=== PATIENT | female | born 1975 | race Hispanic/Latino ===

== ENCOUNTER 2017-08-04 22:53 | Inpatient (IN) | payer MEDICAID, OTHER ==
[~2017-08-04] VITALS: Ht 149.9 cm; Wt 69.2 kg
[~2017-08-04 22:53] MED LIST: LEVO500T2 PO; METF850T2 PO
[2017-08-04] MEDS ORDERED: ONDANSETRON HCL 4 MG/2 ML VIAL ONE (23:26)
[2017-08-04 23:47] LABS: BASOPHILS % (AUTO) 0.7 % (0.0-5.0); EOSINOPHILS % (AUTO) 3.7 % (0.0-8.0); HEMATOCRIT 34.9 % (36-48); MEAN CORPUSCULAR HEMOGLOBIN 28.8 pg (27.0-33.0); MEAN CORPUSCULAR HGB CONC 34.4 g/dL (32.0-36.0); MEAN CORPUSCULAR VOLUME 83.6 fL (79-99); MONOCYTES % (AUTO) 7.8 % (3.0-13.0); NEUTROPHILS % (AUTO) 51.8 % (40.0-77.0); NUCLEATED RED BLOOD CELLS 0.1 % (0.0-0.19); PLATELET COUNT (AUTO) 156 K/uL (130-400); RED BLOOD CELL COUNT(AUTO) 4.17 MIL/uL (4.00-5.50); RED CELL DISTRIBUTION WIDTH 14.8 % (11.0-15.5); WHITE BLOOD COUNT (AUTO) 5.2 K/uL (4.8-10.8)
[2017-08-04 23:56] LABS: CREATININE 3.6 mg/dL (0.5-1.5); POTASSIUM 4.8 mmol/L (3.5-5.1)
[2017-08-05 00:01] LABS: ALBUMIN 2.7 g/dL (3.5-5.0); BILIRUBIN,TOTAL 0.2 mg/dL (0.2-1.0); TOTAL PROTEIN, SERUM 6.7 g/dL (6.0-8.3)
[2017-08-05 00:40] LABS: BILIRUBIN,URINE Negative (NEGATIVE); COLOR,URINE Yellow (YELLOW); GLUCOSE, URINE (UA) Negative (NEGATIVE); KETONES,URINE Negative (NEGATIVE); LEUKOCYTE ESTERASE ,URINE Negative (NEGATIVE); NITRATE,URINE Negative (NEGATIVE); OCCULT BLOOD,URINE Trace (NEGATIVE); PROTEIN,URINE 300 (NEGATIVE); UROBILINOGEN,URINE 0.2 mg/dL (0.2-1.0)
[2017-08-05 00:42] LABS: APPEARANCE,URINE SLIGHTLY CLOUDY (CLEAR)
[2017-08-05 00:54] LABS: AMORPHOUS SEDIMENT,UR Few /LPF (None Seen); BACTERIA,URINE None Seen /HPF (None Seen); RBC,URINE 0-1 /HPF (0-1); SQUAMOUS EPITHELIAL CELL,UR Few /LPF (0-2); WBC,URINE 0-1 /HPF (0-1)
[2017-08-05] MEDS ORDERED: ACETAMINOPHEN 325 MG TAB PO PRN ×2 (03:15)
[2017-08-05] MEDS ORDERED: IPRATROPIUM/ALBUTEROL SULFATE 3 ML SOLUTION IH PRN (03:30)
[2017-08-05] MEDS ORDERED: IPRATROPIUM/ALBUTEROL SULFATE 3 ML SOLUTION IH ONE (06:40)
[2017-08-05] MEDS: FAMOTIDINE/PF 20 MG/2 ML VIAL IV SCH ×2 (09:00→21:48)
[2017-08-05] MEDS: OSELTAMIVIR PHOSPHATE 75 MG CAP PO SCH ×2 (09:00→23:34)
[2017-08-05] MEDS ORDERED: OSELTAMIVIR PHOSPHATE 75 MG CAP ONE (09:41)
[2017-08-05] MEDS ORDERED: FAMOTIDINE/PF 20 MG/2 ML VIAL IV ONE (09:42)
[2017-08-05] MEDS ORDERED: DEXTROSE 50%-WATER 50 ML DISP.SYRIN IV ONE ×2 (12:12→17:50)
[2017-08-05] MEDS ORDERED: TRAMADOL HCL 50 MG TABLET ONE (12:31)
[2017-08-05 16:00] VITALS: BP 105/70
[2017-08-05] MEDS ORDERED: ONDANSETRON HCL 4 MG/2 ML VIAL ONE (16:20)
[2017-08-05] MEDS ORDERED: DEXTROSE 50%-WATER 50 ML DISP.SYRIN IV PRN (18:30)
[2017-08-05] MEDS ORDERED: GLUCAGON 1MG KIT 1 MG ML IM PRN (18:30)
[2017-08-05] MEDS: SODIUM CHLORIDE 0.9% 1000ML 1,000 ML IV SCH (19:59)
[2017-08-05 20:00] VITALS: BP 105/70
[2017-08-05] MEDS: FLU VACC QS2017-18 36MOS UP/PF 60 MCG/0.5 ML ML IM SCH (20:45)
[2017-08-05] MEDS: PNEUMOCOCCAL VACCINE POLYVALENT 0.5 ML/VIAL [PPV] IM SCH (20:45)
[2017-08-05] MEDS: ONDANSETRON HCL 4 MG/2 ML VIAL IV PRN (22:22)
[2017-08-06] VITALS (67 sets, daily range): BP systolic 51–176; BP diastolic 29–99
[2017-08-06] MEDS ORDERED: SODIUM CHLORIDE 0.9% 1000ML 1,000 ML IV SCH ×2 (00:45→00:50)
[2017-08-06 01:39] LABS: BASOPHILS % (AUTO) 0.7 % (0.0-5.0); EOSINOPHILS % (AUTO) 2.3 % (0.0-8.0); HEMATOCRIT 25.9 % (36-48); LYMPHOCYTES % (AUTO) 52.2 % (21.0-51.0); MEAN CORPUSCULAR HEMOGLOBIN 29.1 pg (27.0-33.0); MEAN CORPUSCULAR HGB CONC 34.3 g/dL (32.0-36.0); MONOCYTES % (AUTO) 7.7 % (3.0-13.0); NEUTROPHILS % (AUTO) 37.1 % (40.0-77.0); NUCLEATED RED BLOOD CELLS 0.1 % (0.0-0.19); PLATELET COUNT (AUTO) 93 K/uL (130-400); RED BLOOD CELL COUNT(AUTO) 3.05 MIL/uL (4.00-5.50); RED CELL DISTRIBUTION WIDTH 14.7 % (11.0-15.5); WHITE BLOOD COUNT (AUTO) 4.2 K/uL (4.8-10.8)
[2017-08-06 01:52] LABS: ABG BASE EXCESS -13.3 mmol/L (-2.0-3.0); ABG HCO3 12.7 mmol/L (21.0-28.0); ABG OXYGEN SATURATION 99.1 % (95.0-99.0); ABG PCO2 30 mmHg (32-45)
[2017-08-06 02:12] LABS: ALBUMIN 1.9 g/dL (3.5-5.0); BILIRUBIN,TOTAL 0.2 mg/dL (0.2-1.0); CREATINE KINASE MB 0.8 ng/mL (0.5-3.6); MAGNESIUM 1.6 mg/dL (1.80-2.40); PHOSPHORUS 5.6 mg/dL (2.5-4.9); POTASSIUM 4.9 mmol/L (3.5-5.1); TOTAL PROTEIN, SERUM 4.8 g/dL (6.0-8.3); TROPONIN I 0.08 ng/mL (0.00-0.06)
[2017-08-06] MEDS: DEXTROSE 5 % AND 0.9 % NACL 1,000 ML IV SCH ×3 (02:23→21:19)
[2017-08-06] MEDS ORDERED: NOREPINEPHRINE 4MG/NS 250ML 4 MG/250 ML IV.SOLN IV SCH (02:45)
[2017-08-06] MEDS ORDERED: NOREPINEPHRINE 4MG/NS 250ML 250 ML IV SCH (02:45)
[2017-08-06] MEDS ORDERED: SODIUM CHLORIDE 0.9% 250 ML IV ONE (02:50)
[2017-08-06] MEDS ORDERED: NOREPINEPHRINE BITARTRATE 1 MG/1 ML ML IV ONE (02:50)
[2017-08-06] MEDS: SODIUM CHLORIDE 0.9% 1000ML 1,000 ML IV SCH ×9 (02:57→08:54)
[2017-08-06 03:00] LABS: BAND NEUTROPHILS % (MANUAL) 16 % (0-2); BASOPHILS % (MANUAL) 1 % (0-2); EOSINOPHILS % (MANUAL) 2 % (1-6); LYMPHOCYTES % (MANUAL) 46 % (22-44); MONOCYTES % (MANUAL) 1 % (2-9); REACTIVE LYMPHOCYTES 1 % (0-0); SEGMENTED NEUTROPHILS % 33 % (40-70)
[2017-08-06 03:01] LABS: MAN.DIFF COMMENT-IMPRESSION MANUAL DIFFERENTIAL; PLATELET MORPHOLOGY COMMENT DECREASED
[2017-08-06] MEDS ORDERED: MAGNESIUM 2GM PREMIX 50ML 50 ML IV ONE (03:25)
[2017-08-06] MEDS: ONDANSETRON HCL 4 MG/2 ML VIAL IV PRN ×2 (05:05→20:15)
[2017-08-06 06:36] LABS: HEMATOCRIT 30.2 % (36-48)
[2017-08-06] MEDS: OSELTAMIVIR PHOSPHATE 75 MG CAP PO SCH ×2 (08:54→20:16)
[2017-08-06] MEDS: FAMOTIDINE/PF 20 MG/2 ML VIAL IV SCH ×2 (08:54→20:15)
[2017-08-06 11:27] LABS: ACETONE,BLOOD NEGATIVE (NEGATIVE)
[2017-08-06] MEDS: INSULIN HUMULIN R 100 UNIT/ML 3ML SQ SCH ×3 (11:30→20:58)
[2017-08-06] MEDS: TRAMADOL HCL 50 MG TABLET PO PRN (11:59)
[2017-08-06 12:34] LABS: ABG BASE EXCESS -15.5 mmol/L (-2.0-3.0); ABG HCO3 12.6 mmol/L (21.0-28.0); ABG OXYGEN SATURATION 27.5 % (95.0-99.0); ABG PCO2 38 mmHg (32-45)
[2017-08-06 12:45] LABS: ABG BASE EXCESS -16.5 mmol/L (-2.0-3.0); ABG HCO3 10.2 mmol/L (21.0-28.0); ABG OXYGEN SATURATION 97.6 % (95.0-99.0); ABG PCO2 27 mmHg (32-45)
[2017-08-06] MEDS ORDERED: MEROPENEM 1GM IVPB PREMIXED 1 GM IV SCH (13:00)
[2017-08-06 13:15] LABS: INR 1.01 (0.85-1.15); PROTHROMBIN TIME 10.6 SEC (9.6-11.6)
[2017-08-06] MEDS ORDERED: ZOSYN 3.375GM+NS 50ML 50 ML IV SCH (13:15)
[2017-08-06] MEDS ORDERED: SODIUM BICARB 50MEQ 50ML VIAL IV SCH (13:23)
[2017-08-06] MEDS: IPRATROPIUM/ALBUTEROL SULFATE 3 ML SOLUTION IH SCH ×4 (13:27→22:21)
[2017-08-06] MEDS: MIDODRINE HCL 5 MG TABLET PO SCH ×2 (13:32→20:16)
[2017-08-06] MEDS: SODIUM BICARB 8.4% 50ML SYRING 150 MEQ in DEXTROSE 5%-WATER 1,000 ML IV SCH (13:52)
[2017-08-06] MEDS: MEROPENEM 1 GM VIAL IVP SCH ×2 (13:52→21:23)
[2017-08-06 15:02] LABS: AMYLASE 33 U/L (25-115); LIPASE 176 U/L (114-286)
[2017-08-06] MEDS ORDERED: ENOXAPARIN SODIUM 60 MG/0.6 ML SQ SCH (16:00)
[2017-08-06] MEDS: FLU VACC QS2017-18 36MOS UP/PF 60 MCG/0.5 ML ML IM SCH (20:04)
[2017-08-06] MEDS: PNEUMOCOCCAL VACCINE POLYVALENT 0.5 ML/VIAL [PPV] IM SCH (20:04)
[2017-08-06] MEDS: ENOXAPARIN SODIUM 60 MG/0.6 ML SQ SCH (20:17)
[2017-08-07] VITALS (37 sets, daily range): BP systolic 84–124; BP diastolic 42–73
[2017-08-07] MEDS: IPRATROPIUM/ALBUTEROL SULFATE 3 ML SOLUTION IH SCH ×6 (02:24→22:17)
[2017-08-07 04:13] LABS: HEMATOCRIT 28.5 % (36-48); MEAN CORPUSCULAR HEMOGLOBIN 28.6 pg (27.0-33.0); MEAN CORPUSCULAR HGB CONC 33.8 g/dL (32.0-36.0); MEAN CORPUSCULAR VOLUME 84.5 fL (79-99); NUCLEATED RED BLOOD CELLS 0.1 % (0.0-0.19); PLATELET COUNT (AUTO) 141 K/uL (130-400); RED BLOOD CELL COUNT(AUTO) 3.37 MIL/uL (4.00-5.50); RED CELL DISTRIBUTION WIDTH 15.2 % (11.0-15.5); WHITE BLOOD COUNT (AUTO) 5.7 K/uL (4.8-10.8)
[2017-08-07 04:18] LABS: CREATININE 2.2 mg/dL (0.5-1.5); MAGNESIUM 1.8 mg/dL (1.80-2.40); POTASSIUM 3.8 mmol/L (3.5-5.1)
[2017-08-07 05:32] LABS: BAND NEUTROPHILS % (MANUAL) 26 % (0-2); BASOPHILS % (MANUAL) 1 % (0-2); LYMPHOCYTES % (MANUAL) 34 % (22-44); MONOCYTES % (MANUAL) 4 % (2-9); REACTIVE LYMPHOCYTES 2 % (0-0); SEGMENTED NEUTROPHILS % 33 % (40-70)
[2017-08-07 05:33] LABS: MAN.DIFF COMMENT-IMPRESSION MANUAL DIFFERENTIAL; PLATELET MORPHOLOGY COMMENT ADEQUATE
[2017-08-07] MEDS: MEROPENEM 1 GM VIAL IVP SCH ×3 (05:39→21:48)
[2017-08-07 05:54] LABS: ABG BASE EXCESS -8.3 mmol/L (-2.0-3.0); ABG HCO3 15.7 mmol/L (21.0-28.0); ABG PCO2 29 mmHg (32-45)
[2017-08-07] MEDS: INSULIN HUMULIN R 100 UNIT/ML 3ML SQ SCH ×4 (06:16→20:10)
[2017-08-07] MEDS: ONDANSETRON HCL 4 MG/2 ML VIAL IV PRN ×2 (06:39→20:00)
[2017-08-07] MEDS ORDERED: GUAIFENESIN SUGAR-FREE 100 MG/5 ML UDCUP PO PRN (06:45)
[2017-08-07] MEDS ORDERED: BENZONATATE 100 MG CAPSULE PO PRN (06:45)
[2017-08-07] MEDS: OSELTAMIVIR PHOSPHATE 75 MG CAP PO SCH ×2 (08:23→20:00)
[2017-08-07] MEDS: MIDODRINE HCL 5 MG TABLET PO SCH ×3 (08:23→20:00)
[2017-08-07] MEDS: FAMOTIDINE/PF 20 MG/2 ML VIAL IV SCH ×2 (08:23→20:00)
[2017-08-07] MEDS: ENOXAPARIN SODIUM 60 MG/0.6 ML SQ SCH (08:24)
[2017-08-07] MEDS: SODIUM CHLORIDE 0.9% 1000ML 1,000 ML IV SCH ×2 (08:26→20:00)
[2017-08-07] MEDS: MAGNESIUM 2GM PREMIX 50ML 50 ML IV SCH (08:28)
[2017-08-07] MEDS ORDERED: ENOXAPARIN SODIUM 30 MG/0.3 ML SQ SCH (09:00)
[2017-08-07] MEDS ORDERED: ENOXAPARIN SODIUM 120 MG/0.8ML SQ SCH (09:00)
[2017-08-07] MEDS: SODIUM BICARB 8.4% 50ML SYRING 150 MEQ in DEXTROSE 5%-WATER 1,000 ML IV SCH (11:56)
[2017-08-07] MEDS ORDERED: DIPHENOXYLATE HCL/ATROPINE 2.5/0.025 MG TAB PO PRN (19:15)
[2017-08-07] MEDS: FLU VACC QS2017-18 36MOS UP/PF 60 MCG/0.5 ML ML IM SCH (19:30)
[2017-08-07] MEDS: PNEUMOCOCCAL VACCINE POLYVALENT 0.5 ML/VIAL [PPV] IM SCH (19:30)
[2017-08-08] VITALS (40 sets, daily range): BP systolic 55–147; BP diastolic 30–95
[2017-08-08] MEDS: IPRATROPIUM/ALBUTEROL SULFATE 3 ML SOLUTION IH SCH ×6 (02:10→22:00)
[2017-08-08 03:35] LABS: BASOPHILS % (AUTO) 0.4 % (0.0-5.0); EOSINOPHILS % (AUTO) 1.5 % (0.0-8.0); HEMATOCRIT 24.1 % (36-48); LYMPHOCYTES % (AUTO) 46.4 % (21.0-51.0); MEAN CORPUSCULAR HEMOGLOBIN 29.7 pg (27.0-33.0); MEAN CORPUSCULAR HGB CONC 35.8 g/dL (32.0-36.0); MONOCYTES % (AUTO) 10.8 % (3.0-13.0); NEUTROPHILS % (AUTO) 40.9 % (40.0-77.0); NUCLEATED RED BLOOD CELLS 0.1 % (0.0-0.19); PLATELET COUNT (AUTO) 122 K/uL (130-400); RED BLOOD CELL COUNT(AUTO) 2.91 MIL/uL (4.00-5.50); RED CELL DISTRIBUTION WIDTH 15.2 % (11.0-15.5); WHITE BLOOD COUNT (AUTO) 5.4 K/uL (4.8-10.8)
[2017-08-08 03:44] LABS: CREATININE 1.9 mg/dL (0.5-1.5); POTASSIUM 3.2 mmol/L (3.5-5.1)
[2017-08-08] MEDS: SODIUM CHLORIDE 0.9% 1000ML 1,000 ML IV SCH ×2 (05:25→15:59)
[2017-08-08] MEDS: MEROPENEM 1 GM VIAL IVP SCH ×3 (05:25→21:08)
[2017-08-08] MEDS: INSULIN HUMULIN R 100 UNIT/ML 3ML SQ SCH ×3 (05:26→20:15)
[2017-08-08] MEDS: ONDANSETRON HCL 4 MG/2 ML VIAL IV PRN (08:22)
[2017-08-08] MEDS: OSELTAMIVIR PHOSPHATE 75 MG CAP PO SCH ×3 (09:37→20:19)
[2017-08-08] MEDS: FAMOTIDINE/PF 20 MG/2 ML VIAL IV SCH ×2 (09:37→20:18)
[2017-08-08] MEDS: MIDODRINE HCL 5 MG TABLET PO SCH ×4 (09:37→20:19)
[2017-08-08] MEDS: ENOXAPARIN SODIUM 30 MG/0.3 ML SQ SCH ×2 (09:38→12:00)
[2017-08-08] MEDS ORDERED: POTASSIUM CHLORIDE 20 MEQ/100 ML BAG IV SCH (10:30)
[2017-08-08] MEDS ORDERED: CHLORPROMAZINE HCL 25 MG/ML 1ML AMP IM PRN (11:45)
[2017-08-08] MEDS ORDERED: CHLORPROMAZINE HCL 25 MG/ML 1ML AMP IM SCH (11:45)
[2017-08-08] MEDS: SUCRALFATE 1 GM/10 ML PO SCH ×3 (12:12→21:09)
[2017-08-08] MEDS: POTASSIUM CHLORIDE 20MEQ/100ML 100 ML IV SCH ×2 (12:13→16:02)
[2017-08-08] MEDS: M.V.I. IV [ADULT] 10 ML in CLINIMIX E 5%-15% 2,000 ML IV SCH (12:17)
[2017-08-08 15:26] LABS: BASOPHILS % (AUTO) 0.6 % (0.0-5.0); EOSINOPHILS % (AUTO) 2.2 % (0.0-8.0); HEMATOCRIT 26.2 % (36-48); LYMPHOCYTES % (AUTO) 46.7 % (21.0-51.0); MEAN CORPUSCULAR HEMOGLOBIN 28.9 pg (27.0-33.0); MEAN CORPUSCULAR HGB CONC 34.3 g/dL (32.0-36.0); MEAN CORPUSCULAR VOLUME 84.4 fL (79-99); MONOCYTES % (AUTO) 8.4 % (3.0-13.0); NEUTROPHILS % (AUTO) 42.1 % (40.0-77.0); PLATELET COUNT (AUTO) 154 K/uL (130-400); RED CELL DISTRIBUTION WIDTH 15.4 % (11.0-15.5); WHITE BLOOD COUNT (AUTO) 5.6 K/uL (4.8-10.8)
[2017-08-08 15:46] LABS: CREATINE KINASE MB 3.3 ng/mL (0.5-3.6)
[2017-08-08 15:50] LABS: TROPONIN I 1.08 ng/mL (0.00-0.06)
[2017-08-08] MEDS: HYDROCORTISONE SOD SUCCINATE 100 MG/2 ML VIAL IV SCH ×3 (16:02→20:18)
[2017-08-08] MEDS: FLU VACC QS2017-18 36MOS UP/PF 60 MCG/0.5 ML ML IM SCH (19:33)
[2017-08-08] MEDS ORDERED: ENOXAPARIN SODIUM 80 MG/0.8 ML SQ SCH (20:00)
[2017-08-08 22:40] LABS: CREATINE KINASE MB 2.9 ng/mL (0.5-3.6)
[2017-08-08 22:42] LABS: TROPONIN I 0.85 ng/mL (0.00-0.06)
[2017-08-09] VITALS (29 sets, daily range): BP systolic 109–170; BP diastolic 63–103
[2017-08-09] MEDS: INSULIN HUMULIN R 100 UNIT/ML 3ML SQ SCH ×4 (00:21→17:26)
[2017-08-09] MEDS: IPRATROPIUM/ALBUTEROL SULFATE 3 ML SOLUTION IH SCH ×6 (02:00→23:37)
[2017-08-09 04:17] LABS: ALBUMIN 1.8 g/dL (3.5-5.0); BILIRUBIN,TOTAL 0.3 mg/dL (0.2-1.0); CREATINE KINASE MB 1.9 ng/mL (0.5-3.6); PHOSPHORUS 1.7 mg/dL (2.5-4.9); POTASSIUM 4.7 mmol/L (3.5-5.1); TOTAL PROTEIN, SERUM 5.3 g/dL (6.0-8.3)
[2017-08-09 04:22] LABS: TROPONIN I 0.7 ng/mL (0.00-0.06)
[2017-08-09] MEDS: MEROPENEM 1 GM VIAL IVP SCH ×3 (05:16→21:56)
[2017-08-09] MEDS: SUCRALFATE 1 GM/10 ML PO SCH ×3 (05:16→16:32)
[2017-08-09] MEDS: TRAMADOL HCL 50 MG TABLET PO PRN (06:11)
[2017-08-09] MEDS: HYDROCORTISONE SOD SUCCINATE 100 MG/2 ML VIAL IV SCH ×4 (09:08→21:54)
[2017-08-09] MEDS: MIDODRINE HCL 5 MG TABLET PO SCH ×3 (09:09→21:54)
[2017-08-09] MEDS: ENOXAPARIN SODIUM 100 MG/1 ML SQ SCH (09:09)
[2017-08-09] MEDS: OSELTAMIVIR PHOSPHATE 75 MG CAP PO SCH ×2 (09:09→21:54)
[2017-08-09] MEDS: FAMOTIDINE/PF 20 MG/2 ML VIAL IV SCH ×2 (09:09→21:54)
[2017-08-09] MEDS: ONDANSETRON HCL 4 MG/2 ML VIAL IV PRN (10:13)
[2017-08-09] MEDS: SODIUM CHLORIDE 0.9% 1000ML 1,000 ML IV SCH ×2 (16:00→16:32)
[2017-08-09 19:04] LABS: HEMOGLOBIN A1C 8.1 % (4.0-6.0)
[2017-08-09] MEDS: FLU VACC QS2017-18 36MOS UP/PF 60 MCG/0.5 ML ML IM SCH (20:32)
[2017-08-10] VITALS (21 sets, daily range): BP systolic 112–155; BP diastolic 68–93
[2017-08-10] MEDS: SUCRALFATE 1 GM/10 ML PO SCH ×4 (00:02→18:04)
[2017-08-10] MEDS: INSULIN HUMULIN R 100 UNIT/ML 3ML SQ SCH ×5 (00:03→21:00)
[2017-08-10] MEDS: ONDANSETRON HCL 4 MG/2 ML VIAL IV PRN ×2 (03:46→13:22)
[2017-08-10 04:32] LABS: ALBUMIN 1.8 g/dL (3.5-5.0); BILIRUBIN,TOTAL 0.3 mg/dL (0.2-1.0); CREATININE 1.7 mg/dL (0.5-1.5); PHOSPHORUS 1.5 mg/dL (2.5-4.9); POTASSIUM 4.2 mmol/L (3.5-5.1); TOTAL PROTEIN, SERUM 5.3 g/dL (6.0-8.3)
[2017-08-10] MEDS: MEROPENEM 1 GM VIAL IVP SCH ×3 (05:33→22:33)
[2017-08-10] MEDS: SODIUM CHLORIDE 0.9% 1000ML 1,000 ML IV SCH ×3 (06:00→18:04)
[2017-08-10] MEDS: IPRATROPIUM/ALBUTEROL SULFATE 3 ML SOLUTION IH SCH ×4 (07:10→23:16)
[2017-08-10] MEDS: M.V.I. IV [ADULT] 10 ML in CLINIMIX E 5%-15% 2,000 ML IV SCH (09:00)
[2017-08-10] MEDS: HYDROCORTISONE SOD SUCCINATE 100 MG/2 ML VIAL IV SCH ×4 (09:33→20:56)
[2017-08-10] MEDS: FAMOTIDINE/PF 20 MG/2 ML VIAL IV SCH ×2 (09:33→20:56)
[2017-08-10] MEDS: MIDODRINE HCL 5 MG TABLET PO SCH ×3 (09:33→20:56)
[2017-08-10] MEDS: ENOXAPARIN SODIUM 100 MG/1 ML SQ SCH (09:33)
[2017-08-10] MEDS ORDERED: METOCLOPRAMIDE 10 MG/2 ML VIAL IVP SCH (14:00)
[2017-08-10] MEDS: METOCLOPRAMIDE 5 MG TABLET PO SCH ×2 (15:39→18:04)
[2017-08-10] MEDS ORDERED: POTASSIUM PHOS 15 mMOL+NS250ML 250 ML IV SCH (15:45)
[2017-08-10] MEDS: FLU VACC QS2017-18 36MOS UP/PF 60 MCG/0.5 ML ML IM SCH (20:45)
[2017-08-11] VITALS (7 sets, daily range): BP systolic 134–170; BP diastolic 71–114
[2017-08-11] MEDS: SUCRALFATE 1 GM/10 ML PO SCH ×4 (00:13→17:30)
[2017-08-11] MEDS: ONDANSETRON HCL 4 MG/2 ML VIAL IV PRN ×3 (03:16→21:31)
[2017-08-11 04:09] LABS: HEMATOCRIT 27.4 % (36-48); MEAN CORPUSCULAR HEMOGLOBIN 28.3 pg (27.0-33.0); MEAN CORPUSCULAR VOLUME 83.1 fL (79-99); PLATELET COUNT (AUTO) 255 K/uL (130-400); RED CELL DISTRIBUTION WIDTH 14.7 % (11.0-15.5); WHITE BLOOD COUNT (AUTO) 10.7 K/uL (4.8-10.8)
[2017-08-11 05:00] LABS: CHOLESTEROL 219 mg/dL (<200); HDL CHOLESTEROL 26 mg/dL (35-85); LDL DIRECT 166 mg/dL (0-99); TRIGLYCERIDES 250 mg/dL (30-200)
[2017-08-11 05:02] LABS: ALBUMIN 2.1 g/dL (3.5-5.0); BILIRUBIN,TOTAL 0.3 mg/dL (0.2-1.0); CREATININE 1.5 mg/dL (0.5-1.5); MAGNESIUM 1.9 mg/dL (1.80-2.40); PHOSPHORUS 2.5 mg/dL (2.5-4.9); POTASSIUM 4.5 mmol/L (3.5-5.1); TOTAL PROTEIN, SERUM 5.4 g/dL (6.0-8.3)
[2017-08-11] MEDS: IPRATROPIUM/ALBUTEROL SULFATE 3 ML SOLUTION IH SCH ×4 (06:16→19:16)
[2017-08-11] MEDS: MEROPENEM 1 GM VIAL IVP SCH ×3 (07:03→21:45)
[2017-08-11] MEDS: METOCLOPRAMIDE 5 MG TABLET PO SCH ×3 (07:04→17:30)
[2017-08-11] MEDS: INSULIN HUMULIN R 100 UNIT/ML 3ML SQ SCH ×4 (07:04→22:32)
[2017-08-11] MEDS: M.V.I. IV [ADULT] 10 ML in CLINIMIX E 5%-15% 2,000 ML IV SCH (09:00)
[2017-08-11] MEDS: ENOXAPARIN SODIUM 30 MG/0.3 ML SQ SCH (09:00)
[2017-08-11] MEDS: MIDODRINE HCL 5 MG TABLET PO SCH ×3 (09:00→21:00)
[2017-08-11] MEDS: HYDROCORTISONE SOD SUCCINATE 100 MG/2 ML VIAL IV SCH ×3 (09:27→17:30)
[2017-08-11] MEDS: FAMOTIDINE/PF 20 MG/2 ML VIAL IV SCH ×2 (09:27→21:31)
[2017-08-11] MEDS: SODIUM CHLORIDE 0.9% 1000ML 1,000 ML IV SCH (09:28)
[2017-08-11] MEDS ORDERED: NITROGLYCERIN 0.4 MG SL TAB SL PRN (13:15)
[2017-08-11] MEDS ORDERED: MAGNESIUM 2GM PREMIX 50ML 50 ML IV SCH (18:15)
[2017-08-11] MEDS: FLU VACC QS2017-18 36MOS UP/PF 60 MCG/0.5 ML ML IM SCH (20:45)
[2017-08-11] MEDS: TRAMADOL HCL 50 MG TABLET PO PRN (21:37)
[2017-08-12] MEDS: SODIUM CHLORIDE 0.9% 1000ML 1,000 ML IV SCH ×2 (00:15→18:49)
[2017-08-12] MEDS: IPRATROPIUM/ALBUTEROL SULFATE 3 ML SOLUTION IH SCH ×5 (00:45→23:29)
[2017-08-12] MEDS: SUCRALFATE 1 GM/10 ML PO SCH ×5 (01:54→18:48)
[2017-08-12 03:00] VITALS: BP 138/81
[2017-08-12 04:11] LABS: HEMATOCRIT 24.4 % (36-48); MEAN CORPUSCULAR HEMOGLOBIN 29.7 pg (27.0-33.0); MEAN CORPUSCULAR HGB CONC 35.9 g/dL (32.0-36.0); MEAN CORPUSCULAR VOLUME 82.7 fL (79-99); PLATELET COUNT (AUTO) 252 K/uL (130-400); RED BLOOD CELL COUNT(AUTO) 2.95 MIL/uL (4.00-5.50); RED CELL DISTRIBUTION WIDTH 14.4 % (11.0-15.5); WHITE BLOOD COUNT (AUTO) 12.7 K/uL (4.8-10.8)
[2017-08-12 04:29] LABS: CREATININE 1.5 mg/dL (0.5-1.5); MAGNESIUM 1.7 mg/dL (1.80-2.40); PHOSPHORUS 2.1 mg/dL (2.5-4.9); POTASSIUM 4.2 mmol/L (3.5-5.1)
[2017-08-12] MEDS: INSULIN HUMULIN R 100 UNIT/ML 3ML SQ SCH ×4 (06:14→20:36)
[2017-08-12] MEDS: HYDROCORTISONE SOD SUCCINATE 100 MG/2 ML VIAL IV SCH ×2 (06:41→18:49)
[2017-08-12] MEDS: MEROPENEM 1 GM VIAL IVP SCH ×2 (06:41→14:02)
[2017-08-12] MEDS: METOCLOPRAMIDE 5 MG TABLET PO SCH ×3 (06:45→18:48)
[2017-08-12 08:00] VITALS: BP 115/75
[2017-08-12] MEDS: MAGNESIUM 2GM PREMIX 50ML 50 ML IV SCH (10:02)
[2017-08-12] MEDS: FAMOTIDINE/PF 20 MG/2 ML VIAL IV SCH ×2 (10:10→20:31)
[2017-08-12] MEDS: MIDODRINE HCL 5 MG TABLET PO SCH ×3 (10:56→20:31)
[2017-08-12] MEDS: ENOXAPARIN SODIUM 30 MG/0.3 ML SQ SCH (10:57)
[2017-08-12 12:00] VITALS: BP 153/87
[2017-08-12] MEDS: M.V.I. IV [ADULT] 10 ML in CLINIMIX E 5%-15% 2,000 ML IV SCH (13:46)
[2017-08-12 16:00] VITALS: BP 146/93
[2017-08-12] MEDS ORDERED: FUROSEMIDE 40 MG TABLET PO ONE (17:00)
[2017-08-12 19:45] VITALS: BP 133/79
[2017-08-12] MEDS: METOPROLOL TARTRATE 25 MG TAB PO SCH (20:30)
[2017-08-12] MEDS ORDERED: ATORVASTATIN CALCIUM 10 MG TABLET PO SCH (21:00)
[2017-08-12 23:38] VITALS: BP 159/96
[2017-08-13] MEDS: SUCRALFATE 1 GM/10 ML PO SCH ×3 (00:22→13:06)
[2017-08-13] MEDS: MEROPENEM 1 GM VIAL IVP SCH ×3 (00:24→13:55)
[2017-08-13 03:55] VITALS: BP 163/88
[2017-08-13] MEDS: HYDROCORTISONE SOD SUCCINATE 100 MG/2 ML VIAL IV SCH (04:15)
[2017-08-13 05:19] LABS: BILIRUBIN,TOTAL 0.3 mg/dL (0.2-1.0); CREATININE 1.4 mg/dL (0.5-1.5); POTASSIUM 4.7 mmol/L (3.5-5.1); TOTAL PROTEIN, SERUM 5.1 g/dL (6.0-8.3)
[2017-08-13] MEDS: MIDODRINE HCL 5 MG TABLET PO SCH (06:27)
[2017-08-13] MEDS: METOPROLOL TARTRATE 25 MG TAB PO SCH (06:27)
[2017-08-13] MEDS: IPRATROPIUM/ALBUTEROL SULFATE 3 ML SOLUTION IH SCH ×2 (06:29→11:22)
[2017-08-13] MEDS: INSULIN HUMULIN R 100 UNIT/ML 3ML SQ SCH ×2 (06:36→13:09)
[2017-08-13] MEDS: SODIUM CHLORIDE 0.9% 1000ML 1,000 ML IV SCH (07:03)
[2017-08-13 08:00] VITALS: BP 168/99
[2017-08-13] MEDS: M.V.I. IV [ADULT] 10 ML in CLINIMIX E 5%-15% 2,000 ML IV SCH (09:00)
[2017-08-13] MEDS ORDERED: ASPIRIN 81MG TAB.CHEW PO SCH (09:00)
[2017-08-13] MEDS ORDERED: FUROSEMIDE 40 MG TABLET PO SCH (09:00)
[2017-08-13] MEDS: METOCLOPRAMIDE 5 MG TABLET PO SCH ×2 (11:14→11:30)
[2017-08-13] MEDS: ENOXAPARIN SODIUM 30 MG/0.3 ML SQ SCH (11:16)
[2017-08-13] MEDS: FAMOTIDINE/PF 20 MG/2 ML VIAL IV SCH (11:16)
[2017-08-13 12:07] VITALS: BP 153/94
[2017-08-13] MEDS ORDERED: MIDODRINE HCL 5 MG TABLET PO PRN (14:00)
== END 2017-08-13 14:00 | disposition left against medical advice (07) | DRG 720 ==
LOC: EDH 22:53 → EDHIP 22:54 → 3BH 08-05 17:25 → 2CH 08-06 01:49 → 2BH 08-08 09:12 → 3BH 08-10 16:41
PROVIDERS: ADMIT Family Medicine; ATTEND Family Medicine
PROC: 3E0234Z Introduction of Serum, Toxoid and Vaccine into Muscle, Percutaneous Approach (ICD-10-PCS; principal; 2017-08-04)
DX: A41.9 Sepsis, unspecified organism (principal); I21.4 Non-ST elevation (NSTEMI) myocardial infarction; J96.90 Respiratory failure, unspecified, unspecified whether with hypoxia or hypercapnia; R65.21 Severe sepsis with septic shock; J11.00 Influenza due to unidentified influenza virus with unspecified type of pneumonia; D69.6 Thrombocytopenia, unspecified; N17.9 Acute kidney failure, unspecified; E11.22 Type 2 diabetes mellitus with diabetic chronic kidney disease; E11.43 Type 2 diabetes mellitus with diabetic autonomic (poly)neuropathy; K31.84 Gastroparesis; E86.0 Dehydration; K52.9 Noninfective gastroenteritis and colitis, unspecified; N18.9 Chronic kidney disease, unspecified; K80.10 Calculus of gallbladder with chronic cholecystitis without obstruction; N12 Tubulo-interstitial nephritis, not specified as acute or chronic; D64.9 Anemia, unspecified; I27.20 Pulmonary hypertension, unspecified; J20.9 Acute bronchitis, unspecified; K82.8 Other specified diseases of gallbladder; Z23 Encounter for immunization; Z78.9 Other specified health status; Z82.49 Family history of ischemic heart disease and other diseases of the circulatory system; Z82.5 Family history of asthma and other chronic lower respiratory diseases; Z83.3 Family history of diabetes mellitus
CPT/HCPCS: 36415; 36600; 71045; 71046; 74176; 76705; 78582; 80048; 80053; 80061; 81001; 82009; 82150; 82330; 82435; 82550; 82553; 82803; 82947; 82948; 83036; 83605; 83690; 83735; 83874; 84100; 84132; 84295; 84484; 85007; 85018; 85025; 85027; 85378; 85610; 85730; 87040; 87088; 87324; 87804; 90732; 93005; 93306; 93970; 94640; 94664; A4218; A4344; A9540; A9558; C1751; C1894; J1650; J1720; J1815; J2185; J2405; J3230; J3475; J3480; J3490; J7030; J7042; J7070; Q2038